=== PATIENT | female | born 1995 | race Caucasian/White ===

== ENCOUNTER 2018-06-27 13:17 | Emergency (ER) | payer BC ==
[~2018-06-27] VITALS: Ht 160 cm; Wt 54.5 kg
[2018-06-27 13:52] VITALS: Ht 160 cm; Wt 54.5 kg
[2018-06-27] MEDS ORDERED: NORCO 7.5/325 T1 TA1 PO (16:02)
[2018-06-27 16:15] VITALS: BP 104/63
== END 2018-06-27 16:30 | disposition home or self-care (01) ==
LOC: D.ER 13:17
DX: G89.18 Other acute postprocedural pain (principal); F17.200 Nicotine dependence, unspecified, uncomplicated

== ENCOUNTER 2018-07-03 18:03 | Emergency (ER) | payer BC ==
[~2018-07-03] VITALS: Ht 160 cm; Wt 54.5 kg
[~2018-07-03 18:03] MED LIST: NORCO 7.5/325 T1 TA1 PO
[2018-07-03 18:16] VITALS: Ht 160 cm; Wt 54.5 kg
[2018-07-03] MEDS ORDERED: IBUPROFEN800 MG PO (18:17)
[2018-07-03 19:11] LABS: BASOPHILS 0.3 % (0-2); EOSINOPHILS 3.3 % (0-7); HEMATOCRIT 33.6 % (36.0-48.0); IMMATURE GRANULOCYTES 0.3 % (0-5); LYMPHOCYTES 39.2 % (15-50); MCH 29.8 pg (26.0-34.0); MCHC 32.7 g/dL (31.0-37.0); MCV 91.1 fL (80.0-100.0); MEAN PLATELET VOLUME 10.8 fL (7.4-10.4); MONOCYTES 6.6 % (2-11); NEUTROPHILS 50.3 % (40-80); PLATELET COUNT 179 10x3/uL (130-400); RBC 3.69 10x6/uL (4.00-5.40); RDW 13.1 % (11.5-14.5); WBC 6.4 10x3/uL (4.8-10.8)
[2018-07-03 19:12] LABS: APPEARANCE CLEAR (CLEAR); BILIRUBIN NEGATIVE (NEGATIVE); COLOR YELLOW (YELLOW); GLUCOSE NEGATIVE (NEGATIVE); KETONE NEGATIVE (NEGATIVE); NITRITE NEGATIVE (NEGATIVE); PROTEIN NEGATIVE (NEGATIVE); SPECIFIC GRAVITY 1.005 (1.005-1.020); UROBILINOGEN NORMAL (NORMAL)
[2018-07-03 19:32] LABS: ALBUMIN 3.6 g/dL (3.4-5.0); ALKALINE PHOSPHATASE 56 U/L (46-116); ALT (SGPT) 62 U/L (10-68); BILIRUBIN - TOTAL 0.24 mg/dL (0.2-1.3); CALC OSMOLALITY 281 mosm/kg (275-300); CALCIUM 8.9 mg/dL (8.5-10.1); CARBON DIOXIDE 27.1 mmol/L (21.0-32.0); CHLORIDE - SERUM 106 mmol/L (98-107); CREATININE - SERUM 0.8 mg/dL (0.6-1.3); GLUCOSE 98 mg/dL (74-106); PROTEIN - SERUM 6.8 g/dL (6.4-8.2); SODIUM 142 mmol/L (136-145); UREA NITROGEN 9 mg/dL (7-18); eGFR NON AFRICAN AMERICAN > 90 mL/min (90-120)
[2018-07-03] MEDS ORDERED: NORCO 5/325 TAB1 TAB PO (21:24)
[2018-07-03 21:48] VITALS: BP 102/57
== END 2018-07-03 21:49 | disposition home or self-care (01) ==
LOC: D.ER 18:03
PROVIDERS: Emergency Medicine
DX: G89.18 Other acute postprocedural pain (principal); F17.200 Nicotine dependence, unspecified, uncomplicated

== ENCOUNTER 2018-07-15 21:35 | Emergency (ER) | payer BC ==
[~2018-07-15] VITALS: Ht 160 cm; Wt 50.0 kg
[~2018-07-15 21:35] MED LIST changes: +IBUPROFEN800 MG PO; +NORCO 5/325 TAB1 TAB PO
[2018-07-15 21:44] VITALS: Ht 160 cm; Wt 50.0 kg
[2018-07-15 22:06] LABS: BASOPHILS 0.3 % (0-2); EOSINOPHILS 2.5 % (0-7); HEMATOCRIT 37.3 % (36.0-48.0); HEMOGLOBIN 12.2 g/dL (12-16); IMMATURE GRANULOCYTES 0.1 % (0-5); LYMPHOCYTES 35.2 % (15-50); MCHC 32.7 g/dL (31.0-37.0); MCV 91.6 fL (80.0-100.0); MEAN PLATELET VOLUME 10.3 fL (7.4-10.4); MONOCYTES 7.3 % (2-11); NEUTROPHILS 54.6 % (40-80); PLATELET COUNT 205 10x3/uL (130-400); RBC 4.07 10x6/uL (4.00-5.40); RDW 13.2 % (11.5-14.5); WBC 7.6 10x3/uL (4.8-10.8)
[2018-07-15 22:09] LABS: APPEARANCE CLEAR (CLEAR); COLOR YELLOW (YELLOW); SPECIFIC GRAVITY 1.015 (1.005-1.020)
[2018-07-15 22:10] LABS: BILIRUBIN NEGATIVE (NEGATIVE); GLUCOSE NEGATIVE (NEGATIVE); KETONE NEGATIVE (NEGATIVE); NITRITE NEGATIVE (NEGATIVE); PROTEIN NEGATIVE (NEGATIVE); UROBILINOGEN NORMAL (NORMAL)
[2018-07-15 22:15] LABS: HCG SERUM POSITIVE (NEGATIVE)
[2018-07-15 22:20] LABS: UDS - AMPHET NEGATIVE QUAL (NEGATIVE); UDS - BARB NEGATIVE QUAL (NEGATIVE); UDS - BENZO POSITIVE QUAL (NEGATIVE); UDS - COCAINE NEGATIVE QUAL (NEGATIVE); UDS - OPIATE NEGATIVE QUAL (NEGATIVE); UDS - PCP NEGATIVE QUAL (NEGATIVE); UDS - THC NEGATIVE QUAL (NEGATIVE)
[2018-07-15 22:26] LABS: ALBUMIN 3.8 g/dL (3.4-5.0); ALKALINE PHOSPHATASE 70 U/L (46-116); ALT (SGPT) 45 U/L (10-68); BILIRUBIN - TOTAL 0.32 mg/dL (0.2-1.3); CALC OSMOLALITY 281 mosm/kg (275-300); CALCIUM 8.6 mg/dL (8.5-10.1); CARBON DIOXIDE 30.9 mmol/L (21.0-32.0); CHLORIDE - SERUM 105 mmol/L (98-107); CREATININE - SERUM 0.9 mg/dL (0.6-1.3); GLUCOSE 88 mg/dL (74-106); POTASSIUM - SERUM 3.8 mmol/L (3.5-5.1); PROTEIN - SERUM 7.6 g/dL (6.4-8.2); SODIUM 143 mmol/L (136-145); UREA NITROGEN 8 mg/dL (7-18); eGFR NON AFRICAN AMERICAN 83 mL/min (90-120)
[2018-07-15 22:34] LABS: THYROID STIMULATING HORMONE 1.86 uIU/mL (0.36-3.74)
[2018-07-16 00:53] VITALS: BP 112/72
== END 2018-07-16 00:54 ==
LOC: D.ER 21:35
PROVIDERS: Emergency Medicine
DX: F32.9 Major depressive disorder, single episode, unspecified (principal); F43.20 Adjustment disorder, unspecified; R45.851 Suicidal ideations